=== PATIENT | female | born 1970 | race Caucasian/White ===

== ENCOUNTER 2018-04-25 17:32 | Emergency (ER) | payer SELFPAY ==
[2018-04-25 17:43] VITALS: TEMP 97.9; BMI 28.3
--- NOTE | 2018-04-25 17:45 | PDOC ---
Rapid Medical Evaluation Chief Complaint: Pain, Acute Time Seen by Provider: 04/25/18 17:38 Medical Evaluation: Allergies Allergy/AdvReac Type Severity Reaction Status Date / Time No Known Allergies Allergy Verified 08/25/15 06:23 04/25/18 17:42 c/o right pelvic pain radiating to right upper abdomen and right shoulder for one month but today the pain is worse. denies chest pain, NVD abdominal Pain. pain is worse with movement. and pain is constant no urinary symptoms. last tylenol 12.30 pm PSHX: hysterctomy has left ovary PE: patient alert ox3 Plan; UA/ Ucx patient to the ER for further management of care. 04/25/18 17:45 Discharge Disposition - Diagnosis Pelvic pain - Referrals - Patient Instructions - Post Discharge Activity
[2018-04-25 19:50] LABS: BASO % 0.5 % (0-2.0); EOS % 0.9 % (0-4.5); HEMATOCRIT 38.8 % (32.4-45.2); LYMPH % 24.2 % (8-40); MCH 28.4 pg (25.7-33.7); MCHC 33.5 g/dl (32.0-36.0); MEAN CELL VOLUME 84.9 fl (80-96); MEAN PLT VOLUME 6.7 fl (7.5-11.1); NEUT % 69.4 % (42.8-82.8); PLATELET COUNT 316 K/MM3 (134-434); RBC 4.57 M/mm3 (3.60-5.2); RDW 13.6 % (11.6-15.6); WHITE BLOOD COUNT 9.3 K/mm3 (4.0-10.0)
[2018-04-25] MEDS ORDERED: KETOROLAC TROMETHAMINE 30 MG/1 ML VIAL IVPUSH ONE (20:33)
[2018-04-25] MEDS ORDERED: KETOROLAC TROMETHAMINE 30 MG/1 ML VIAL ONE (20:35)
[2018-04-25 20:37] LABS: URINE APPEARANCE CLEAR; URINE BILIRUBIN NEGATIVE (<2.0 mg/dL); URINE COLOR LTYELLOW; URINE GLUCOSE (UA) NEGATIVE (NEGATIVE); URINE KETONE NEGATIVE (NEGATIVE); URINE LEUK ESTERASE NEGATIVE (NEGATIVE); URINE NITRITE NEGATIVE (NEGATIVE); URINE PROTEIN NEGATIVE (NEGATIVE); URINE UROBILINOGEN NEGATIVE mg/dL (0.2-1.0)
[2018-04-25 20:44] LABS: ALK PHOS 102 U/L (45-117); ANION GAP 5 MMOL/L (8-16); BILIRUBIN,TOTAL 0.9 mg/dL (0.2-1); BLOOD UREA NITROGEN 10 mg/dL (7-18); CALCIUM 9.4 mg/dL (8.5-10.1); CHLORIDE 105 mmol/L (98-107); CO2 29 mmol/L (21-32); CREATININE 0.4 mg/dL (0.55-1.3); GLUCOSE,RANDOM 90 mg/dL (74-106); POTASSIUM 4.2 mmol/L (3.5-5.1); SGOT/AST 28 U/L (15-37); SGPT/ALT 56 U/L (13-61); SODIUM 139 mmol/L (136-145); TOT PROT 7.5 g/dl (6.4-8.2)
--- NOTE | 2018-04-25 20:54 | PDOC ---
History of Present Illness - General Chief Complaint: Pain, Acute Stated Complaint: RIGHT SIDE PAIN Time Seen by Provider: 04/25/18 17:38 History Source: Patient Exam Limitations: No Limitations - History of Present Illness Travel History: No Initial Comments: 04/25/18 20:56 Best Contact: PCP:N/A Pmhx: N/A Pshx: C section, PAOLA, Lap Appendectomy Allergies: NKDA FH: Social Hx: Cigarettes/ 0 Alcohol/ 0 Drugs/0 LMP:N/A 47-year-old female presents to the emergency department complaining of right- sided flank pain 3 days radiating to the right pelvic/groin region. Pain is described as 6/10 dull intermittent discomfort. Pain is exacerbated on touch and there are no alleviating factors. Patient denies fever, chills, nausea/ vomiting, headache, dizziness, lightheadedness, neck pain/stiffness, back pains , chest pain, shortness of breath, abdominal pains, urinary symptoms. 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 Patient denies bladder or bowel dysfunction Past History - Past Medical History Allergies/Adverse Reactions: Allergies Allergy/AdvReac Type Severity Reaction Status Date / Time No Known Allergies Allergy Verified 08/25/15 06:23 COPD: No - Surgical History Abdominal Surgery: Yes ([facility]) - Family Disease History Family Disease History: Diabetes: Father, Heart Disease: Father - Immunization History Immunization Up to Date: Yes - Suicide/Smoking/Psychosocial Hx Smoking History: Never smoked Have you smoked in the past 12 months: No Hx Alcohol Use: No Drug/Substance Use Hx: No Substance Use Type: None Abd/GI Specific PMHX - Complaint Specific PMHX Colitis: No Diverticulitis: No Gall Bladder Disease: No GERD: No Hepatitis: No Irritable Bowel Synd (IBS): No Pancreatitis: No GI Ulcer Disease: No Review of Systems - Review of Systems Able to Perform ROS?: Yes Comments:: 04/25/18 20:57 CONSTITUTIONAL: Absent: fever, chills, diaphoresis, generalized weakness, malaise, loss of appetite HEENT: Absent: rhinorrhea, nasal congestion, throat pain, throat swelling, difficulty swallowing, mouth swelling, ear pain, eye pain, visual Changes CARDIOVASCULAR: Absent: chest pain, loss of consciousness, palpitations, irregular heart rate, peripheral edema RESPIRATORY: Absent: cough, shortness of breath, dyspnea with exertion, orthopnea, wheezing, stridor, hemoptysis GASTROINTESTINAL: +Right pelvic pain Absent:abdominal distension, nausea, vomiting, diarrhea, constipation, melena, hematochezia GENITOURINARY: +right flank pain Absent: dysuria, frequency, urgency, hesitancy, hematuria,genital pain MUSCULOSKELETAL: Absent: myalgia, arthralgia, joint swelling SKIN: Absent: rash, itching, pallor HEMATOLOGIC/IMMUNOLOGIC: Absent: easy bleeding, easy bruising, lymphadenopathy, frequent infections ENDOCRINE: Absent: unexplained weight gain, unexplained weight loss, heat intolerance, cold intolerance NEUROLOGIC: Absent: headache, focal weakness or paresthesias, dizziness, unsteady gait, seizure, mental status changes, bladder or bowel incontinence PSYCHIATRIC: Absent: anxiety, depression, suicidal or homicidal ideation, hallucinations. Is the patient limited Upper Sorbian proficient: No *Physical Exam - Vital Signs Last Vital Signs Temp Pulse Resp BP Pulse Ox 97.9 F 80 18 136/75 97 04/25/18 17:40 04/25/18 17:40 04/25/18 17:40 04/25/18 17:40 04/25/18 17:40 - Physical Exam Comments: 04/25/18 20:58 GENERAL: Well developed, well nourished. Awake and alert. No acute distress. HEENT: Normocephalic, atraumatic. PERRLA, EOMI. No conjunctival pallor. Sclera are non- icteric. Moist mucous membranes. Oropharynx is clear. NECK: Supple. Full ROM. No JVD. Carotid pulses 2+ and symmetric, without bruits. No thyromegaly. No lymphadenopathy. CARDIOVASCULAR: Regular rate and rhythm. No murmurs, rubs, or gallops. Distal pulses are 2+ and symmetric. PULMONARY: No evidence of respiratory distress. Lungs clear to auscultation bilaterally. No wheezing, rales or rhonchi. ABDOMINAL: Soft. Non-tender. Non-distended. No rebound or guarding. No organomegaly. Normoactive bowel sounds. MUSCULOSKELETAL +Right CVAT Normal range of motion at all joints. No bony deformities or tenderness. EXTREMITIES: No cyanosis. No clubbing. No edema. No calf tenderness. SKIN: Warm and dry. Normal capillary refill. No rashes. No jaundice. NEUROLOGICAL: Alert, awake, appropriate. Cranial nerves 2-12 intact. No deficits to light touch and temperature in face, upper extremities and lower extremities. No motor deficits in the in face, upper extremities and lower extremities. Normoreflexic in the upper and lower extremities. Normal speech. Toes are down- going bilaterally. Gait is normal without ataxia. PSYCHIATRIC: Cooperative. Good eye contact. Appropriate mood and affect. ED Treatment Course - LABORATORY CBC & Chemistry Diagram: 04/25/18 19:34 04/25/18 19:34 - ADDITIONAL ORDERS Additional order review: Laboratory Results 04/25/18 04/25/18 20:30 19:34 Sodium 139 Potassium 4.2 Chloride 105 Carbon Dioxide 29 Anion Gap 5 L BUN 10 Creatinine 0.4 L Creat Clearance w eGFR > 60 Random Glucose 90 Calcium 9.4 Total Bilirubin 0.9 AST 28 ALT 56 Alkaline Phosphatase 102 Total Protein 7.5 Albumin 4.0 Urine Color Ltyellow Urine Appearance Clear Urine pH 5.0 Ur Specific [place] 1.009 L Urine Protein Negative Urine Glucose (UA) Negative Urine Ketones Negative Urine Blood Negative Urine Nitrite Negative Urine Bilirubin Negative Urine Urobilinogen Negative Ur Leukocyte Esterase Negative 04/25/18 19:34 RBC 4.57 MCV 84.9 MCHC 33.5 RDW 13.6 MPV 6.7 L Neutrophils % 69.4 Lymphocytes % 24.2 Monocytes % 5.0 Eosinophils % 0.9 Basophils % 0.5 - RADIOLOGY Radiology Studies Ordered: Category Date Time Status TRANSVAGINAL ULTRASOUND US [US] Stat Ultrasound 04/25/18 19:32 Ordered Radiograph Interpretation: 04/25/18 20:59 CT renal colic: - Medications Given in the ED: ED Medications Discontinued Medications Generic Name Dose Route Start Last Admin Trade Name Freq PRN Reason Stop Dose Admin Ketorolac Tromethamine 30 mg 04/25/18 20:33 04/25/18 20:35 Toradol Injection - IVPUSH 04/25/18 20:34 30 mg ONCE ONE Administration *DC/Admit/Observation/Transfer Diagnosis at time of Disposition: Right low back pain Qualifiers: Chronicity: acute Sciatica presence: unspecified whether sciatica present Qualified Code(s): M54.5 - Low back pain - Discharge Dispostion Disposition: HOME Condition at time of disposition: Stable Decision to Admit order: No - Referrals Referrals: Aristides Villarreal MD [Staff Physician] - - Patient Instructions Printed Discharge Instructions: DI for Back Spasm Additional Instructions: CALENTAMIENTO y entrenamiento Comience frederick rutina de ejercicios con un calentamiento del ncleo, contine con un conjunto de movimientos de fortalecimiento del ncleo y termine con estos ejercicios de estiramiento esttico. Estiramientos estticos 1. pose del nio: 30 segundos. Sintese en michelle talones y estire los brazos dennis de usted. Reljese y sienta que la tensin desaparece. 2. estiramiento del AB: 30 segundos. Acustese boca abajo sobre frederick tapete con los brazos en posicin de empujar hacia arriba. Enderece michelle brazos lentamente, hasta que sienta el estiramiento en michelle abdominales, y luego sostenga. estiramiento de la trino 3. cat: 30 segundos + 30 segundos. Baja la kaelyn y gira la espalda y el karla tirando de los abdominales. Sostenga rojas 30 segundos y luego levante la kaelyn y alrededor de frederick espalda hacia el suelo. 4. estiramiento de la cadera: 30 segundos + 30 segundos. Doblar la rodilla izquierda y cruzar la pierna izquierda por la derecha. Coloque la mano izquierda en el piso y gire la parte superior del cuerpo hacia la izquierda. Repita en el lado opuesto. estiramiento trasero 5. Lower: 30 segundos. Acustese sobre frederick espalda y luego tire lentamente de las rodillas hacia el pecho. estiramiento 6. obliques: 30 segundos + 30 segundos. Levntese, levante frederick brazo autumn e incline frederick torso a la derecha hasta que usted sienta el estiramiento en los oblicuos. Sostenga y repita en el lado opuesto. 7. curva delantera de pie: 30 segundos. Exhale mientras que usted gira lentamente michelle caderas y baja frederick torso. Trate de tocar la parte posterior de los tobillos, mantenga las rodillas derechas y sostenga. WARM UP AND WORKOUT Start your exercise routine with a core warm up, continue with a set of core strengthening moves and finish with these static stretching exercises. STATIC STRETCHES 1. Scarlet pose: 30 seconds. Sit down on your heels and stretch your arms in front of you. Relax and feel the tension fading away. 2. Ab stretch: 30 seconds. Lie face down on your mat with your arms in a push up position. Straighten your arms slowly, until you feel the stretch in your abs , and then hold. 3. Cat cow stretch: 30 seconds + 30 seconds. Drop your head and round your back and neck by pulling your abs in. Hold for 30 seconds and then lift your head and round your back down toward the floor. 4. Hip stretch: 30 seconds + 30 seconds. Bend your left knee and cross your left leg over the right. Place your left hand on the floor and rotate your upper body to the left. Repeat on the opposite side. 5. Lower back stretch: 30 seconds. Lie down on your back and then slowly pull your knees toward the chest. 6. Obliques stretch: 30 seconds + 30 seconds. Stand up, raise your left arm and lean your torso to the right until you feel the stretch in the obliques. Hold and repeat on the opposite side. 7. Standing forward bend: 30 seconds. Exhale as you slowly rotate your hips and lower your torso. Try touching the back of your ankles, keep your knees straight and hold. Seguimiento con el cirujano ortopdico esta semana. Volver al ER para los sntomas severos/persistentes/que empeoran. Print Language: GERMAN - Post Discharge Activity Forms/Work/School Notes: Back to Work
[2018-04-25] MEDS ORDERED: ACETAMINOPHEN 1000 MG/100 ML VIAL (NON FORMULARY) IVPB ONE (22:47)
[2018-04-25] MEDS ORDERED: ACETAMINOPHEN INJECTION 100 ML IVPB ONE (22:49)
[2018-04-26] MEDS ORDERED: CYCLOBENZAPRINE HCL 10 MG TABLET (FP) PO ONE (00:23)
[2018-04-26] MEDS ORDERED: CYCLOBENZAPRINE HCL 10 MG TABLET (FP) ONE (00:27)
[2018-04-26 00:34] VITALS: BP 133/83; PULSE 73
== END 2018-04-26 00:47 | disposition home or self-care (01) ==
LOC: JER 17:32
PROC: 3E033NZ Introduction of Analgesics, Hypnotics, Sedatives into Peripheral Vein, Percutaneous Approach (ICD-10-PCS; principal; 2018-04-25)
PROC: 3E0333Z Introduction of Anti-inflammatory into Peripheral Vein, Percutaneous Approach (ICD-10-PCS; 2018-04-25)
DX: M54.5 Low back pain (principal); N83.202 Unspecified ovarian cyst, left side; Z90.710 Acquired absence of both cervix and uterus
CPT/HCPCS: 36415; 74176; 80053; 81003; 85025; 87086; 99282-25; J0131

== ENCOUNTER 2019-02-20 20:07 | Emergency (ER) | payer SELFPAY | END 2019-02-21 00:25 | disposition home or self-care (01) | LOC: JER 02-21 00:25 ==

== ENCOUNTER 2023-03-28 04:01 | Emergency (ER) | payer OTHER ==
[2023-03-28 04:07] VITALS: TEMP 97.9; BMI 26.2
[2023-03-28] MEDS ORDERED: ACETAMINOPHEN 1000 MG/100 ML BAG IVPB ONE (04:43)
[2023-03-28] MEDS ORDERED: ACETAMINOPHEN INJECTION 100 ML IVPB ONE (04:56)
[2023-03-28 05:50] LABS: BASO % 0.6 % (0-2.0); EOS % 1.6 % (0-4.5); HEMATOCRIT 40.5 % (32.4-45.2); HEMOGLOBIN 13.2 GM/dL (10.7-15.3); LYMPH % 27.5 % (8-40); MCH 27.5 pg (25.7-33.7); MCHC 32.7 g/dl (32.0-36.0); MEAN PLT VOLUME 7.5 fl (7.5-11.1); MONO % 6.6 % (3.8-10.2); NEUT % 63.7 % (42.8-82.8); PLATELET COUNT 321 10^3/uL (134-434); RBC 4.82 M/mm3 (3.60-5.2); WHITE BLOOD COUNT 7.9 K/mm3 (4.0-10.0)
[2023-03-28] MEDS ORDERED: ONDANSETRON 4 MG/2 ML VIAL IVPUSH ONE (06:09)
[2023-03-28 06:10] LABS: POTASSIUM 4.1 mmol/L (3.5-5.1)
[2023-03-28 06:12] LABS: CALCIUM 9.3 mg/dL (8.5-10.1)
[2023-03-28 06:15] LABS: CREATININE 0.6 mg/dL (0.55-1.3)
[2023-03-28 06:17] LABS: BILIRUBIN,TOTAL 0.6 mg/dL (0.2-1); TOT PROT 7.6 g/dl (6.4-8.2)
[2023-03-28] MEDS ORDERED: ONDANSETRON 4 MG/2 ML VIAL ONE (06:31)
[2023-03-28 09:08] VITALS: BP 119/67; PULSE 65; RESP 16
== END 2023-03-28 09:00 | disposition home or self-care (01) ==
LOC: JER 04:01
PROC: 3E033NZ Introduction of Analgesics, Hypnotics, Sedatives into Peripheral Vein, Percutaneous Approach (ICD-10-PCS; principal; 2023-03-28)
PROC: 3E033GC Introduction of Other Therapeutic Substance into Peripheral Vein, Percutaneous Approach (ICD-10-PCS; 2023-03-28)
DX: R07.81 Pleurodynia (principal); R11.0 Nausea; Z20.822 Contact with and (suspected) exposure to COVID-19
CPT/HCPCS: 0241U-QW; 36415; 71045-TC-FY; 71275-TC; 80053; 84484; 85025; 93005; 93010; 99285-25; Q9967

== ENCOUNTER 2024-12-03 05:21 | Inpatient (IN) | payer OTHER ==
[2024-12-03] MEDS ORDERED: ACETAMINOPHEN INJECTION 100 ML ONE (06:15)
[2024-12-03] MEDS: ACETAMINOPHEN 1000 MG/100 ML BAG IVPB ONE (06:39)
[2024-12-03 06:50] LABS: ABSOLUTE IMMATURE GRANULOCYTES 0.02 x10^3/uL (0.0-0.031); BASOPHILS # 0.05 x10^3/uL (0.01-0.08); EOSINOPHIL % 2.4 % (0.7-5.8); EOSINOPHILS # 0.19 x10^3/uL (0.04-0.36); HEMATOCRIT 44.8 % (34.1-44.9); HEMOGLOBIN 14.3 g/dL (11.2-15.7); MCHC 31.9 g/dl (32.2-35.5); MEAN CELL VOLUME 85.8 fl (79.4-94.8); MEAN PLT VOLUME 8.7 fl (9.4-12.3); MONOCYTE # 0.48 x10^3/uL (0.24-0.86); PLATELET COUNT 319 x10^3/uL (182-369); RDW 13.2 % (12.3-16.6)
[2024-12-03 06:58] LABS: INR 1.02 (0.83-1.09); PROTHROMBIN TIME (PATIENT) 11.1 SEC (9.7-13.0)
[2024-12-03 07:01] LABS: ACTIVATED PTT 29.3 SECONDS (25.2-36.5)
[2024-12-03] MEDS ORDERED: KETOROLAC TROMETHAMINE 15 MG/ML VIAL ONE (07:01)
[2024-12-03] MEDS: KETOROLAC TROMETHAMINE 15 MG/ML VIAL IVPUSH ONE (07:09)
[2024-12-03 07:16] LABS: POTASSIUM 4.4 mmol/L (3.5-5.1)
[2024-12-03 07:18] LABS: CALCIUM 9.6 mg/dL (8.5-10.1)
[2024-12-03 07:19] LABS: ALBUMIN 3.9 g/dl (3.4-5.0); BLOOD UREA NITROGEN 19.4 mg/dL (7-18)
[2024-12-03 07:22] LABS: CREATININE 0.6 mg/dL (0.55-1.3)
[2024-12-03 07:23] LABS: TOT PROT 7.9 g/dl (6.4-8.2)
[2024-12-03 07:25] LABS: BILIRUBIN,TOTAL 1.5 mg/dL (0.2-1)
[2024-12-03] MEDS ORDERED: ACETAMINOPHEN 325 MG TABLET (FP) PO PRN (12:17)
[2024-12-03] MEDS: PIPERACILLIN/TAZOB 3.375 GM 3.375 GM in DEXTROSE 5%-WATER - 50 ML IVPB SCH (13:03)
[2024-12-03] MEDS: SODIUM CHLORIDE 1,000 ML IV SCH (13:34)
[2024-12-03 13:45] LABS: MCHC 32.5 g/dl (32.2-35.5); MEAN CELL VOLUME 84.7 fl (79.4-94.8); MEAN PLT VOLUME 8.9 fl (9.4-12.3); PLATELET COUNT 284 x10^3/uL (182-369); RDW 13.2 % (12.3-16.6)
[2024-12-03 14:02] LABS: ALBUMIN 3.6 g/dl (3.4-5.0)
[2024-12-03 14:04] LABS: BILIRUBIN,DIRECT 1.1 mg/dL (0.0-0.2)
[2024-12-03 14:07] LABS: BILIRUBIN,TOTAL 1.8 mg/dL (0.2-1); TOT PROT 6.9 g/dl (6.4-8.2)
[2024-12-03 14:25] VITALS: BMI 27.6
[2024-12-03] MEDS: ACETAMINOPHEN 500 MG TABLET (FP) PO PRN (15:21)
[2024-12-03] MEDS: KETOROLAC TROMETHAMINE 15 MG/ML VIAL IVPUSH PRN (21:40)
[2024-12-04 08:28] LABS: HEMATOCRIT 38.6 % (34.1-44.9); HEMOGLOBIN 12.4 g/dL (11.2-15.7); MCHC 32.1 g/dl (32.2-35.5); MEAN PLT VOLUME 9.1 fl (9.4-12.3); PLATELET COUNT 278 x10^3/uL (182-369); RDW 13.4 % (12.3-16.6)
[2024-12-04 08:49] LABS: ALBUMIN 3.1 g/dl (3.4-5.0); BLOOD UREA NITROGEN 10.5 mg/dL (7-18); CALCIUM 8.5 mg/dL (8.5-10.1); CREATININE 0.5 mg/dL (0.55-1.3)
[2024-12-04 08:50] LABS: BILIRUBIN,TOTAL 2.3 mg/dL (0.2-1); TOT PROT 6.3 g/dl (6.4-8.2)
[2024-12-04] MEDS ORDERED: MIDAZOLAM HCL 2 MG/2 ML SINGLE DOSE VIAL ONE (10:14)
[2024-12-04] MEDS ORDERED: GLUCAGON 1 MG KIT ONE (11:19)
[2024-12-04] MEDS: GLUCAGON 1 MG KIT IVPUSH ONE (11:20)
[2024-12-04 13:15] LABS: BILIRUBIN,DIRECT 1.3 mg/dL (0.0-0.2)
[2024-12-04 13:28] LABS: HEPATITIS B SURF AG NON-MATERN NON-REACTIVE (NONREACTIVE)
[2024-12-04 13:54] LABS: HCV DIAGNOSTIC IN-HOUSE W/RFLX NON-REACTIVE (NONREACTIVE)
[2024-12-04] MEDS: LACTATED RINGERS SOLUTION 1,000 ML/1,000 ML INFUS.BAG IV SCH (14:24)
[2024-12-04] MEDS: ONDANSETRON 4 MG/2 ML VIAL IVPUSH PRN (18:22)
[2024-12-05 08:00] LABS: HEMATOCRIT 36.3 % (34.1-44.9); HEMOGLOBIN 11.7 g/dL (11.2-15.7); MCHC 32.2 g/dl (32.2-35.5); MEAN CELL VOLUME 85.4 fl (79.4-94.8); PLATELET COUNT 262 x10^3/uL (182-369); RDW 13.4 % (12.3-16.6)
[2024-12-05 08:24] LABS: POTASSIUM 3.6 mmol/L (3.5-5.1)
[2024-12-05 08:36] LABS: ALBUMIN 3.1 g/dl (3.4-5.0); BLOOD UREA NITROGEN 8.3 mg/dL (7-18); CALCIUM 9.1 mg/dL (8.5-10.1)
[2024-12-05 08:39] LABS: CREATININE 0.6 mg/dL (0.55-1.3)
[2024-12-05 08:41] LABS: TOT PROT 6.1 g/dl (6.4-8.2)
[2024-12-05] MEDS ORDERED: PROMETHAZINE HCL 25 MG/1 ML VIAL IVPB PRN ×2 (14:13→19:00)
[2024-12-05] MEDS ORDERED: oxyCODONE HCL 5 MG TABLET PO PRN ×2 (14:13)
[2024-12-05] MEDS ORDERED: ONDANSETRON 4 MG/2 ML VIAL IVPUSH PRN ×3 (14:13→19:00)
[2024-12-05] MEDS ORDERED: SEVOFLURANE 250 ML BTL ONE (14:59)
[2024-12-05] MEDS ORDERED: DEXAMETHASONE SOD PHOSPHATE 4 MG/1 ML VIAL ONE (14:59)
[2024-12-05] MEDS ORDERED: PROPOFOL 20 ML ONE (14:59)
[2024-12-05] MEDS ORDERED: LIDOCAINE HCL/PF 2% SDV 5ML VIAL ONE (14:59)
[2024-12-05] MEDS ORDERED: MIDAZOLAM HCL 2 MG/2 ML SINGLE DOSE VIAL ONE (14:59)
[2024-12-05] MEDS ORDERED: ONDANSETRON 4 MG/2 ML VIAL ONE (14:59)
[2024-12-05] MEDS ORDERED: ROCURONIUM BROMIDE 50 MG/5 ML SYRINGE ONE (14:59)
[2024-12-05] MEDS ORDERED: BUPIVACAINE HCL/PF 0.25% (2.5MG/ML) 10 ML VIAL ONE (15:05)
[2024-12-05] MEDS ORDERED: INDOCYANINE GREEN 25 MG/10 ML VIAL IVPUSH ONE (15:05)
[2024-12-05] MEDS ORDERED: cefOXitin SODIUM 2 GM VIAL (RESTRICTED TO ID) IVPB ONE (15:05)
[2024-12-05] MEDS ORDERED: HEPARIN NA (PORCINE) 5,000 UNITS/ML 1ML VIAL ONE (15:05)
[2024-12-05] MEDS ORDERED: SUGAMMADEX SODIUM 200 MG/2 ML VIAL ONE (15:50)
[2024-12-05] MEDS ORDERED: KETOROLAC TROMETHAMINE 30 MG/1 ML VIAL ONE (16:13)
[2024-12-05] MEDS ORDERED: ACETAMINOPHEN INJECTION 100 ML ONE (16:13)
[2024-12-05] MEDS ORDERED: PIPERACILLIN/TAZOBACTAM 3.375 GM VIAL IVPB ONE (16:21)
[2024-12-05] MEDS: PIPERACILLIN/TAZOBACTAM 3.375 GM VIAL IVPB ONE ×2 (16:30→16:34)
[2024-12-05] MEDS: BUPIVACAINE HCL/PF 0.25% (2.5MG/ML) 10 ML VIAL IJ ONE (16:35)
[2024-12-05] MEDS: LACTATED RINGERS SOLUTION 1,000 ML/1,000 ML INFUS.BAG IV SCH (19:06)
[2024-12-05 20:40] VITALS: RESP 18
[2024-12-05] MEDS: oxyCODONE HCL 5 MG TABLET PO PRN (21:09)
[2024-12-06] MEDS: PIPERACILLIN/TAZOB 3.375 GM 3.375 GM in DEXTROSE 5%-WATER - 50 ML IVPB SCH ×3 (01:04→07:22)
[2024-12-06] MEDS: oxyCODONE HCL 5 MG TABLET PO PRN (01:04)
[2024-12-06] MEDS: KETOROLAC TROMETHAMINE 15 MG/ML VIAL IVPUSH PRN (07:18)
[2024-12-06 09:50] LABS: ABSOLUTE IMMATURE GRANULOCYTES 0.06 x10^3/uL (0.0-0.031); BASOPHILS # 0.02 x10^3/uL (0.01-0.08); HEMATOCRIT 37.5 % (34.1-44.9); HEMOGLOBIN 11.9 g/dL (11.2-15.7); MCHC 31.7 g/dl (32.2-35.5); MEAN CELL VOLUME 84.8 fl (79.4-94.8); MEAN PLT VOLUME 9.2 fl (9.4-12.3); MONOCYTE # 0.38 x10^3/uL (0.24-0.86); MONOCYTE % 3.3 % (4.7-12.5); PLATELET COUNT 284 x10^3/uL (182-369); RDW 13.3 % (12.3-16.6)
[2024-12-06 10:13] LABS: POTASSIUM 3.7 mmol/L (3.5-5.1)
[2024-12-06 10:19] LABS: ALBUMIN 3.1 g/dl (3.4-5.0); BLOOD UREA NITROGEN 10.6 mg/dL (7-18); CALCIUM 8.9 mg/dL (8.5-10.1); MAGNESIUM 1.8 mg/dL (1.8-2.4)
[2024-12-06 10:22] LABS: BILIRUBIN,DIRECT 0.4 mg/dL (0.0-0.2); CREATININE 0.6 mg/dL (0.55-1.3); PHOSPHOROUS 3.5 mg/dL (2.5-4.9); TOT PROT 6.4 g/dl (6.4-8.2)
[2024-12-06 10:24] LABS: BILIRUBIN,TOTAL 1.2 mg/dL (0.2-1)
[2024-12-06] MEDS ORDERED: ACETAMINOPHEN 500 MG TABLET (FP) PO PRN (11:30)
[2024-12-06] MEDS: ENOXAPARIN NA (PORCINE) 40 MG/0.4 ML DISP.SYRIN SQ SCH (12:41)
[2024-12-06 15:03] VITALS: BP 112/77; PULSE 59; TEMP 97.7
[2024-12-06] MEDS ORDERED: ACETAMINOPHEN 500 MG TABLET (FP) PO SCH (23:30)
== END 2024-12-06 15:10 | disposition home or self-care (01) | DRG 263 ==
LOC: JER 05:21 → JERBED 10:28 → J6S 12:38
PROVIDERS: ADMIT Student in an Organized Health Care Education/Training Program; ATTEND Internal Medicine
PROC: 0F798DZ Dilation of Common Bile Duct with Intraluminal Device, Via Natural or Artificial Opening Endoscopic (ICD-10-PCS; 2024-12-04)
PROC: 0FJB8ZZ Inspection of Hepatobiliary Duct, Via Natural or Artificial Opening Endoscopic (ICD-10-PCS; 2024-12-04)
PROC: 0FC98ZZ Extirpation of Matter from Common Bile Duct, Via Natural or Artificial Opening Endoscopic (ICD-10-PCS; 2024-12-04 11:00)
PROC: 8E0W4CZ Robotic Assisted Procedure of Trunk Region, Percutaneous Endoscopic Approach (ICD-10-PCS; 2024-12-05)
PROC: 0FT44ZZ Resection of Gallbladder, Percutaneous Endoscopic Approach (ICD-10-PCS; principal; 2024-12-05 15:30)
DX: K80.00 Calculus of gallbladder with acute cholecystitis without obstruction (principal); E80.6 Other disorders of bilirubin metabolism; R10.11 Right upper quadrant pain; R14.0 Abdominal distension (gaseous); R74.01 Elevation of levels of liver transaminase levels; R11.0 Nausea
CPT/HCPCS: 36415; 71045-TC-FY; 74018-TC-FY; 74177-TC; 74181-TC; 76000-TC-FY; 76705-TC; 80053; 80076; 81003; 82248; 83690; 83735; 84100; 84484; 85025; 85027; 85610; 85651; 85730; 86704; 86708; 86803; 86850; 86900; 86901; 87086; 87340; 87389; 87517; 88307-TC; 93005; 93010; 94760; 99285-25; C1769; Q9967

== ENCOUNTER 2024-12-18 06:36 | Day surgery (SDC) | payer OTHER ==
[2024-12-17 12:11] VITALS: BMI 26.2
[2024-12-18 11:49] VITALS: TEMP 97.9
[2024-12-18 12:11] VITALS: RESP 18
[2024-12-18 13:18] VITALS: BP 106/62; PULSE 97
== END 2024-12-18 13:19 | disposition home or self-care (01) ==
LOC: JASU-ENDO 06:36
PROVIDERS: ATTEND Internal Medicine Gastroenterology
PROC: 0DC88ZZ Extirpation of Matter from Small Intestine, Via Natural or Artificial Opening Endoscopic (ICD-10-PCS; principal; 2024-12-18 10:30)
DX: Z96.89 Presence of other specified functional implants (principal); Z46.89 Encounter for fitting and adjustment of other specified devices